=== PATIENT | male | born 1990 | race Caucasian/White ===

== ENCOUNTER 2021-02-25 19:38 | Inpatient (IN) | payer OTHER ==
[~2021-02-25] VITALS: Ht 180.3 cm; Wt 65.9 kg
[2021-02-25 21:12] LABS: HEMATOCRIT 42.2 % (42.0-52.0); HEMOGLOBIN 14.3 g/dl (13.5-17.5); MEAN CORPUSCULAR HEMOGLOBIN 31.8 pg (27.0-33.0); MEAN CORPUSCULAR HGB CONC 33.9 g/dl (32.0-36.5); MEAN CORPUSCULAR VOLUME 93.8 fl (80.0-96.0); PLATELET COUNT, AUTOMATED 295 10^3/uL (150-450); WHITE BLOOD COUNT 5.2 10^3/uL (4.0-10.0)
[2021-02-25 21:44] LABS: AMPHETAMINES LEVEL URINE NEGATIVE (NEGATIVE); BARBITURATES URINE NEGATIVE (NEGATIVE); BENZODIAZEPINES URINE NEGATIVE (NEGATIVE); CANNABINOIDS URINE NEGATIVE (NEGATIVE); COCAINE METABOLITE URINE NEGATIVE (NEGATIVE); METHADONE URINE NEGATIVE (NEGATIVE); OPIATES URINE NEGATIVE (NEGATIVE); PHENCYCLIDINE URINE NEGATIVE (NEGATIVE)
[2021-02-25 21:54] LABS: ACETAMINOPHEN LEVEL < 2.0 UG/ML (10.0-30.0); ALBUMIN 4.3 GM/DL (3.2-5.2); ALT/SGPT 21 U/L (12-78); BILIRUBIN,DIRECT 0.3 MG/DL (0.0-0.2); BILIRUBIN,TOTAL 0.7 MG/DL (0.2-1.0); BLOOD UREA NITROGEN 10 MG/DL (7-18); CALCIUM LEVEL 9.4 MG/DL (8.5-10.1); CARBON DIOXIDE LEVEL 26 MEQ/L (21-32); CHLORIDE LEVEL 110 MEQ/L (98-107); CREATININE FOR GFR 0.66 MG/DL (0.70-1.30); ETHYL ALCOHOL (ETHANOL) 0.161 % (0.000-0.010); GLOMERULAR FILTRATION RATE > 60.0 (>60); GLUCOSE, FASTING 94 MG/DL (70-100); POTASSIUM SERUM 3.8 MEQ/L (3.5-5.1); SALICYLATE LEVEL < 1.7 MG/DL (5.0-30.0); SODIUM LEVEL 144 MEQ/L (136-145); TOTAL PROTEIN 7.5 GM/DL (6.4-8.2)
--- OUTSIDE RECORDS SUMMARY | 2021-02-26 00:01 | CCD ---
Author Author [facility] Address Unknown Phone Unavailable Support Name Relationship Address Phone [facility] Next Of Kin [address] [place] [address] Unavailable Re-disclosure Warning The records that you are about to access may contain information from federally-assisted alcohol or drug abuse programs. If such information is present, then the following federally mandated warning applies: This information has been disclosed to you from records protected by federal confidentiality rules (42 CFR part 2). The federal rules prohibit you from making any further disclosure of this information unless further disclosure is expressly permitted by the written consent of the person to whom it pertains or as otherwise permitted by 42 CFR part 2. A general authorization for the release of medical or other information is NOT sufficient for this purpose. The Federal rules restrict any use of the information to criminally investigate or prosecute any alcohol or drug abuse patient.The records that you are about to access may contain highly sensitive health information, the redisclosure of which is protected by Article 27-F of the [facility] Public Health law. If you continue you may have access to information: Regarding HIV / AIDS; Provided by facilities licensed or operated by the [facility] Office of Mental Health; or Provided by the [facility] Office for People With Developmental Disabilities. If such information is present, then the following [facility] mandated warning applies: This information has been disclosed to you from confidential records which are protected by state law. State law prohibits you from making any further disclosure of this information without the specific written consent of the person to whom it pertains, or as otherwise permitted by law. Any unauthorized further disclosure in violation of state law may result in a fine or senior care sentence or both. A general authorization for the release of medical or other information is NOT sufficient authorization for further disc losure. Immunizations Vaccine Date Status Description Data Source(s) COVID-19 VACCINE Moderna 02/11/2021 12:00:00 AM EST completed [facility] Vaccine Series Complete: NOThis Data was Submitted to [facility] Via [employer]. Medications No Information Insurance Providers Payer name Policy type / Coverage type Policy ID Covered libertarian ID Covered libertarian's relationship to petersen Policy Petersen Plan Information [facility] ACTIVE D[employer]Y [id number] Problems, Conditions, and Diagnoses No Information Surgeries/Procedures No Information Results No Information Social History No Information
[2021-02-26 01:33] LABS: RSV AMPLIFICATION NEGATIVE (NEGATIVE)
[2021-02-26] MEDS ORDERED: MOM 30ML SUSPENSION UDC PO PRN (01:50)
[2021-02-26] MEDS ORDERED: ACETAMINOPHEN TAB 650MG DOSE (2X325MG) PO PRN (01:50)
[2021-02-26] MEDS ORDERED: MAALOX 30 ML SUSP *UDC PO PRN (01:50)
[2021-02-26] MEDS ORDERED: HOME MED LIST COMPLETE! XX SCH (02:05)
[2021-02-26 02:30] VITALS: BP 135/87
--- OUTSIDE RECORDS SUMMARY | 2021-02-26 02:58 | CCD ---
Author Author [facility] Address Unknown Phone Unavailable Support Name Relationship Address Phone [facility] Next Of Kin [address] [place] [address] Unavailable Re-disclosure Warning The records that you [...] is protected by Article 27-F of the [facility] Public Health law. If you continue you may have access to information: Regarding HIV / AIDS; Provided by facilities licensed or operated by the [facility] Office of Mental Health; or Provided by the [facility] Office for People With Developmental Disabilities. If such information is present, then the following [facility] mandated warning applies: This information has been [...] law may result in a fine or [place] health [facility] [place] sentence or both. A general authorization for the release of medical or other information is NOT sufficient authorization for further disc losure. Immunizations Vaccine Date Status Description Data Source(s) COVID-19 VACCINE Moderna 02/11/2021 12:00:00 AM EST completed [facility] Vaccine Series Complete: NOThis Data was Submitted to [facility] Via [employer]. Medications No Information Insurance Providers Payer name Policy type / Coverage type Policy ID Covered green party ID Covered green party's relationship to petersen Policy Petersen Plan Information [facility] ACTIVE [employer] [id number] Problems, Conditions, and Diagnoses No Information Surgeries/Procedures No Information Results No Information Social History No Information
[2021-02-26 06:25] VITALS: BP 142/70
[2021-02-26] MEDS: CitaloPRAM (CeleXA) 20 MG TAB PO SCH (11:36)
--- NOTE | 2021-02-26 13:14 | MHHPE ---
[facility] HISTORY AND PHYSICAL DATE OF ADMISSION: 02/26/2021 DATE OF EVALUATION: 02/26/2021 HISTORY OF PRESENT ILLNESS: The patient is first seen via Telepsychiatry and then the patient was seen in person after the initial information was obtained via Telepsychiatry. This is a 30-year-old man. This is his first hospitalization. He was admitted because he presented with complaints of increasing depression and anxiety and suicidal thoughts over the past month. His main stressor is work. He is in the [employer] and he states that he gets really stressed out at work. He feels very depressed, hopeless and helpless. He has middle insomnia, and he also states that he has a lot of anxiety. I did not elicit any other hypomanic or manic-like symptoms or PTSD, OCD or panic disorder in this patient. PAST PSYCHIATRIC HISTORY: The patient has never been in a psychiatric unit. He did some brief outpatient treatment at [facility] a few months ago and he states he went for anxiety. He was never treated with medications. He has no history of suicidal attempts. FAMILY HISTORY: There are no suicides in the family. His mother has had treatment for depression. He states a sister was once hospitalized in a psychiatric unit but he is not sure for what. MEDICAL HISTORY: The patient denies any medical problems. SUBSTANCE USE HISTORY: The patient has no trouble with alcohol or drugs. He drinks alcohol a few times a week he states but he states it is social and he does not think it is a problem and he denies using any drugs. ABUSE HISTORY: The patient denies any problems with any history of being abused physically or sexually or emotionally in the past. REVIEW OF SYSTEMS: VITAL SIGNS: Blood pressure 142/70, pulse is 78, respirations 97. NEUROMUSCULAR SYSTEM: I did not elicit any involuntary movements of his extremities and his gait is normal. GENERAL APPEARANCE: He did not appear to be in any apparent distress. All other systems were reviewed and found to be negative. MENTAL STATUS EXAMINATION: The patient is alert and oriented times three. Eye contact is fair. Psychomotor activity is decreased. There is no formal thought disorder noted. Mood is depressed and anxious. Affect is full range and appropriate. He is not psychotic, suicidal or homicidal. He admits to having had suicidal thoughts prior to admission but denies any thoughts today. Concentration is fair. Memory is intact. Insight and judgment are poor. DIAGNOSIS: 1. Major depressive disorder, recurrent, severe - without psychotic symptoms. 2. Other specified anxiety disorder. TREATMENT PLAN: At this point we will continue to monitor the patient for depression and continue resolution of suicidal thoughts. I will start him on Celexa 20 mg q. daily for his depression and anxiety and Trazodone 50 mg q. h.s. p.r.n. for insomnia. And the plan will be to involve him in individual, group and milieu therapy and discharge when appropriate with appropriate follow up. TARUN
--- NOTE | 2021-02-26 17:47 | HPEPDOC ---
[facility] Medical History & Physical Date of Admission Feb 26, 2021 Date of Service: Feb 26, 2021 History and Physical CHIEF COMPLAINT: Medical health screening HISTORY OF PRESENT ILLNESS: Mr. Coles is a 30-year-old male who was in the inpatient mental health unit for suicidal ideation. Hospitalist was consulted for medical screening. Patient was seen in his room this afternoon. He feels well. Denies any chest pain or dyspnea, abdominal pain, diarrhea, or dysuria. He still feels sad and depressed. He had no other questions or concerns. PAST MEDICAL HISTORY: Denies any past medical history and does not take any medications regularly PAST SURGICAL HISTORY: 1. History of surgery for pyloric stenosis SOCIAL HISTORY: Tobacco use: Denies ETOH: Regularly drinks alcohol Illicit drug use: Denies FAMILY HISTORY: Father: History of high blood pressure Mother: History of hypothyroidism ALLERGIES: Please see below. REVIEW OF SYSTEMS: CONSTITUTIONAL: Denies any fever or chills. ENT: Denies sore throat. RESPIRATORY: Denies shortness of breath. Denies cough. CARDIOVASCULAR: Denies chest pain. Denies palpitations. GASTROINTESTINAL: Denies abdominal pain. Denies diarrhea. GENITOURINARY: Denies dysuria. CUTANEOUS: Denies rashes. MUSCULOSKELETAL: Denies muscle weakness. NEUROLOGICAL: Denies neuropathy. Denies paresthesias. PSYCHOLOGICAL: Reports anxiety. Reports depression. HOME MEDICATIONS: Please see below. PHYSICAL EXAMINATION: VITAL SIGNS: Temperature 99.6, pulse 78, respiratory rate 16, blood pressure 142/70, pulse oximetry 97% on room air. GENERAL: Comfortable, in no apparent distress. HEENT: Head normocephalic/atraumatic, EOMI, sclera clear. NECK: Supple, no JVD. RESPIRATORY: Lungs clear to auscultation bilaterally, no rales, wheeze or rhonchi. CARDIOVASCULAR: Regular rate and rhythm. ABDOMEN: Soft, nontender, no guarding or rebound tenderness. Normal bowel sounds. MUSCLE SKELETAL: Muscle strength 5/5 in all extremities. NEUROLOGICAL: CN 312 grossly intact, no focal deficits noted. PSYCHOLOGICAL: Normal mood and affect LABORATORY DATA: See below. IMAGING: None MICROBIOLOGY: Please see below. ASSESSMENT and PLAN: 1. Suicidal ideation Being managed in the inpatient mental health unit 2. Wellness Patient should follow with a PCP regularly Thank you for consulting us. We will sign off at this time. If there are any further questions or concerns, please do not hesitate to reconsult us. Vital Signs Vital Signs Date Time Temp Pulse Resp B/P (MAP) Pulse Ox O2 Delivery O2 Flow Rate FiO2 02/26/21 06:25 99.6 78 16 142/70 (94) 97 Room Air Laboratory Data Labs 24H Laboratory Tests 2 02/25/21 20:44: Nucleated Red Blood Cells % (auto) 0.0, Anion Gap 8, Glomerular Filtration Rate > 60.0, Calcium Level 9.4, Total Bilirubin 0.7, Direct Bilirubin 0.3H, Aspartate Amino Transf (AST/SGOT) 14, Alanine Aminotransferase (ALT/SGPT) 21, Alkaline Phosphatase 84, Total Protein 7.5, Albumin 4.3, Albumin/Globulin Ratio 1.3, Thyroid Stimulating Hormone (TSH) 1.160, Salicylates Level < 1.7L, Urine Opiates Screen NEGATIVE, Urine Methadone Screen NEGATIVE, Acetaminophen Level < 2.0L, Urine Barbiturates Screen NEGATIVE, Urine Phencyclidine Screen NEGATIVE, Urine Amphetamines Screen NEGATIVE, Urine Benzodiazepines Screen NEGATIVE, Urine Cocaine Metabolite Screen NEGATIVE, Urine Cannabinoids Screen NEGATIVE, Ethyl Alcohol Level 0.161H 02/26/21 00:33: Coronavirus (COVID-19)(PCR) NEGATIVE, Influenza Type A (RT-PCR) NEGATIVE, Influenza Type B (RT-PCR) NEGATIVE, Respiratory Syncytial Virus (PCR) NEGATIVE CBC/BMP Laboratory Tests 02/25/21 20:44 Home Medications No Active Prescriptions or Reported Meds Allergies Coded Allergies: No Known Allergies (Unverified , 02/25/21) A-FIB/CHADSVASC A-FIB History Current/History of A-Fib/PAF?: No TANK COHN DO Feb 26, 2021 17:47
[2021-02-26 18:00] VITALS: BP 127/75
[2021-02-26] MEDS: traZODone 50 MG TAB PO PRN (20:55)
[2021-02-27 07:42] VITALS: BP 117/65
[2021-02-27] MEDS: CitaloPRAM (CeleXA) 20 MG TAB PO SCH (08:22)
[2021-02-27 19:20] VITALS: BP 142/74
[2021-02-27] MEDS: traZODone 50 MG TAB PO PRN (20:44)
[2021-02-28 06:39] VITALS: BP_SYST 130; BP_DIAS 70; BP_DIAS 72
[2021-02-28] MEDS: CitaloPRAM (CeleXA) 20 MG TAB PO SCH (08:30)
[2021-02-28] MEDS ORDERED: hydrOXYzine 50 MG TAB PO PRN (09:00)
--- NOTE | 2021-02-28 10:35 | MHIPNPDOC ---
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 BAL was 0.161 on admission. Endorses that medication has been helping with his symptoms as well as being on the unit, away from the , on evaluation no symptoms of overt OCD including obsessions, compulsions, delayed work progress, does endorse brushing his teeth 3 times a day but denies any fears of contamination, reports sleeping 8 hours a night and eating normally, denies suicidal ideations, intent or plan today. Denies karla icidal ideations, intent or plan. No symptoms of sheila or psychosis reported or observed. No symptoms of alcohol withdrawal reported or observed, aims scoring is 0 today on interview. VITAL SIGNS: See below. NEW TEST RESULTS: None, see below CURRENT MEDICATIONS: See below. MENTAL STATUS EXAMINATION: Patient is a 30-year old male, who is in no acute distress, neat hair, fair eye contact, appears stated age, thin, average height, appears stated age with glasses Speech: Is spontaneous, mildly slowed, normal amount, regular rate Language skills are intact Thought processes including: Linear, logical, goal-directed. Thought content: Denies SI, intent or plan. Denies HI, intent or plan. Abstract reasoning, and computation: Normal description of associations: Normal Description of abnormal or psychotic thoughts: Denies, not observed. Judgment: Fair. Insight: Good Orientation: X4. Recent and remote memory: Intact. Attention span and concentration: Normal Language: Yakut. Fund of knowledge: Average based on interview. Mood: " Some anxiety, but better here". Affect: Mild anxiety, mildly constricted, appropriate, mood congruent DIAGNOSES: Generalized anxiety disorder Major depressive disorder, moderate, single episode ASSESSMENT: On interview patient reports a history of primarily anxiety starting in young adulthood prior to join the which worsened in context of placement also reports low mood, low energy, poor sleep, depression, SI in context of being in work environment lasting more than 2 weeks, states that despite these thoughts having some time away from the and starting medication has been helpful and no longer endorses suicidal ideation, states never had intent, rather vague thoughts and vague plans which she never plan to follow through on. States he feels he could return today, however is agreeable to continued stay for further evaluation, safe discharge plan. Possible discharge tomorrow or Sunday if symptoms continue to improve, to evaluate for medication tolerance and safe discharge planning to be arranged with coordination of . MANAGEMENT PLAN: Continue medications, started BuSpar 10 mg p.o. twice daily for anxiety, Atarax as needed for anxiety spells TIME SPENT: 25 minutes. Vital Signs Vital Signs Date Time Temp Pulse Resp B/P (MAP) Pulse Ox O2 Delivery O2 Flow Rate FiO2 02/28/21 06:39 98.6 64 14 130/70 (90) 98 Room Air Current Medications Current Medications Medications (Trade) Dose Ordered Sig/Eulalia Route PRN Reason Start Time Stop Time Status Last Admin Dose Admin Acetaminophen (Tylenol Tab) 650 mg Q6HP PRN PO HEADACHE or MILD DISCOMFORT 02/26/21 01:50 Al Hydrox/Mg Hydrox/Simethicone (Mylanta) 30 ml Q4HP PRN PO HEARTBURN/INDIGESTION 02/26/21 01:50 Citalopram Hydrobromide (CeleXA) 20 mg DAILY PO 02/26/21 09:00 02/28/21 08:30 Home Med (Home Med List Complete!) ASDIRECTED XX 02/26/21 02:05 02/26/21 02:16 DC Magnesium Hydroxide (Milk Of Magnesia) 30 ml DAILYPRN PRN PO CONSTIPATION 02/26/21 01:50 Trazodone HCl (Desyrel) 50 mg QHSP PRN PO INSOMNIA 02/26/21 01:50 02/27/21 20:44 Allergies Coded Allergies: No Known Allergies (Unverified , 02/25/21) WADE ROMERO MD Feb 28, 2021 10:35
[2021-02-28] MEDS: busPIRone 10 MG TAB PO SCH ×2 (10:45→20:18)
--- NOTE | 2021-02-28 15:23 | MHIPN ---
[facility] PROGRESS NOTE DATE: 02/27/2021 HISTORY OF PRESENT ILLNESS: The patient is seen via TelePsychiatry due to the current Coronavirus crisis. The patient states that he is "doing okay." He says that he slept good last night with the trazodone. He says he is not suicidal today. When I asked him about the depression he said "not bad," but he still is having some depression. MENTAL STATUS EXAM: This patient is alert and oriented times 3. Eye contact is fair. Psychomotor activity is decreased. There is no formal thought disorder noted. Mood is depressed. Affect is appropriate. He is not psychotic, suicidal or homicidal. Concentration and memory is good. Insight and judgment good. DIAGNOSES: 1. Major depression disorder recurrent, severe, without psychotic symptoms. 2. Other specified anxiety disorder. TREATMENT PLAN: We will continue to monitor the patient for continued elevation and stabilization of his mood and continued resolution of suicidal ideations and we will continue to titrate medications as indicated. So far he is tolerating his Celexa and trazodone well without any side effects.
[2021-02-28 16:21] VITALS: BP 133/76
[2021-02-28] MEDS: traZODone 50 MG TAB PO PRN (20:18)
[2021-03-01 06:59] VITALS: BP 133/74
[2021-03-01] MEDS ORDERED: BUSP10TA PO (08:29)
[2021-03-01] MEDS ORDERED: TRAZ-252 PO (08:29)
[2021-03-01] MEDS ORDERED: HYDR50TA70 PO (08:29)
[2021-03-01] MEDS ORDERED: CELE20TA PO (08:29)
[2021-03-01] MEDS: CitaloPRAM (CeleXA) 20 MG TAB PO SCH (08:42)
[2021-03-01] MEDS: busPIRone 10 MG TAB PO SCH (08:42)
--- NOTE | 2021-03-01 11:16 | MHDSPDOC ---
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 BAL was 0.161 on admission. Endorses that medication has been helping with his symptoms as well as being on the unit, away from the , on evaluation no symptoms of overt OCD including obsessions, compulsions, delayed work progress, does endorse brushing his teeth 3 times a day but denies any fears of contamination, reports sleeping 8 hours a night and eating normally, denies suicidal ideations, intent or plan today. Denies homicidal ideations, intent or plan. No symptoms of sheila or psychosis reported or observed. No symptoms of alcohol withdrawal reported or observed, aims scoring is 0 today on interview. Vital signs: See below Consultants involved: See medical H&P by hospitalist Treatment and progress on the unit: Patient was admitted to the [facility] 9.39 legal status and was afforded the following treatment modalities: 1. Individual therapy 2. Group therapy 3. Medication management 4. Milieu therapy 5. Safe environment Hospital course: Patient was admitted to the [facility] on a 9.39 legal status. Patient was admitted after he called 911 while intoxicated, BAL was 0.161 on admission, was medically cleared prior to coming up to the [facility]. Was reporting acute stressor being in the and not having a set schedule and allow her to complete his tasks on duty, despite this states he has had chronic anxiety impacts multiple areas of functioning and that he wanted help for this, was started on Celexa 20 mg p.o. daily and BuSpar 10 mg twice daily, as needed hydroxyzine and trazodone as needed for sleep. Patient found medications beneficial and tolerated them well without side effects. During stay never reported suicidal intent or plan rather vague suicidal thoughts in context of high anxiety, reported that medications helped calm his anxiety and was no longer having these thoughts and felt safe to return to [facility]. Denies mood anxiety and intrusive thoughts which improved with treatment. Patient attended groups daily during stay. Patient symptoms improved with treatment. On day of discharge patient denied depression, anxiety, insomnia, suicidal or homicidal ideations intent or plan, hallucinations, delusions. Patient was discharged to [facility] with follow-up. Patient felt safe for discharge. Was offered continued stay on voluntary admission but refused. Was educated on alcohol use and other substance use, refused treatment for alcohol cravings. Discharge assessment: On today's interview patient is alert and oriented, dressed appropriately. Hygiene and grooming is well-kept. Smiles on approach and is pleasant and engaged on interview. Denies depression and anxiety. Denies suicidal homicidal ideation, intent or planning. Denies and is not observed with sheila or psychotic symptoms of delusions, hallucinations, bizarre thinking, obsessions, paranoia, ruminations, illogical thoughts, flight of ideas or having poor insight or judgment. Patient has normal mentation, declines further hospitalization of voluntary status and meets criteria for discharge today, patient encouraged to return the hospital if symptoms worsen or change and encouraged to call unit if they feel they need provider's questions to be answered or help with medications or care. Patient was future oriented and look forward to seeing his after safety check on [facility]. Mental status: Patient is a 30-year old male, who is in no acute distress, neat hair, good eye contact, appears stated age, thin, average height, appears stated age with glasses Speech: Is spontaneous, mildly slowed, normal amount, regular rate Language skills are intact Thought processes including: Linear, logical, goal-directed. Thought content: Denies SI, intent or plan. Denies HI, intent or plan. Abstract reasoning, and computation: Normal description of associations: Normal Description of abnormal or psychotic thoughts: Denies, not observed. Judgment: Good. Insight: Good Orientation: X4. Recent and remote memory: Intact. Attention span and concentration: Normal Language: Bahamian. Fund of knowledge: Average based on interview. Mood: " Better, calm, at least a 5 out of 10". Affect: Euthymic, mild anxiety at times, appropriate, mood congruent, does laugh and smile at times Medications on discharge: -see medication reconciliation: CSSRS on discharge: Wish to be : No nonspecific active suicidal thoughts: No lifetime attempts: 0 interrupted attempts: 0 aborted attempts: 0 preparatory acts or behavior: None Taking into consideration safety state, status, safety plan, protective factors modifiable, non-modifiable risk factors patient is at low risk on discharge for suicide according to [facility] suicide evaluation. PLAN/FOLLOWUP ARRANGEMENTS: Follow Up Care Education Label * Medical * Medical Follow Up [facility] * Established With This Provider Yes * Therapist [facility] [place] * Date Mar 11, 2021 * Time 12:40 * Address of Clinic or Practice [facility]/ [address] * Follow Up Care Education Label * Mental Health Appt 1 * Additional information [facility]/1BCT HICKEY,CHRI [id number] FTR/60 PENDING Arrive 15 min early 1ST BCT [facility]/1BCT COL SABI [id number]@1000 SPEC/90 PENDING Arrive 15 min early TECH [facility]/1BCT Irene TYLER [id number]@0900 SPEC/90 PENDING Arrive 15 min early 1ST BCT [facility]/1BCT KATHLEEN STARKSIA [id number]@1000 FTR/60 PENDING Arrive 15 min early 1ST BCT [facility]/1BCT KATHLEEN STARKSIA [id number]@0900 FTR/60 PENDING Arrive 15 min early 1ST T [facility]/1BCT RAUDEL,HAIR [id number]@1100 FTR/60 PENDING Arrive 15 min early 1ST T [facility]/1BCT KATHLEEN STARKSIA [id number]@0900 FTR/60 PENDING The amount of time spent in the coordination of care for this patient was approximately 25 minutes. ETOH/Disorder Med Rx ETOH/DRUG DISORDER RX: Offrd @ d/c & pt refused Vital Signs/I&Os Vital Signs Date Time Temp Pulse Resp B/P (MAP) Pulse Ox O2 Delivery O2 Flow Rate FiO2 03/01/21 06:59 98.4 66 20 133/74 (93) 98 Room Air Laboratory Data Labs 24H Laboratory Tests 2 02/28/21 17:00: Coronavirus (COVID-19)(PCR) NEGATIVE Medications Scheduled Buspirone HCl (Buspirone HCl) 10 Mg Tablet, 10 MG PO BID for anxiety, #14 Citalopram Hydrobromide (Celexa) 20 Mg Tablet, 20 MG PO DAILY for anxiety, #7 Scheduled PRN Hydroxyzine HCl (Hydroxyzine HCl) 50 Mg Tablet, 50 MG PO Q6HP PRN for ANXIETY, #21 Trazodone HCl (Trazodone HCl) 50 Mg Tablet, 50 MG PO QHSP PRN for INSOMNIA, #7 Allergies Coded Allergies: No Known Allergies (Unverified , 02/25/21) WADE ROMERO MD Mar 01, 2021 11:16
== END 2021-03-01 11:32 | disposition home or self-care (01) | DRG 880 ==
LOC: M ED 19:38 → M PSY 02-26 01:48
PROVIDERS: ADMIT Student in an Organized Health Care Education/Training Program; ATTEND Student in an Organized Health Care Education/Training Program
DX: F41.1 Generalized anxiety disorder (principal); F32.1 Major depressive disorder, single episode, moderate; R45.851 Suicidal ideations; F10.10 Alcohol abuse, uncomplicated; Z20.822 Contact with and (suspected) exposure to COVID-19; Z56.3 Stressful work schedule

== ENCOUNTER 2022-02-23 12:18 | Emergency (ER) | payer OTHER ==
[~2022-02-23] VITALS: Ht 175.3 cm; Wt 67.7 kg
[~2022-02-23 12:18] MED LIST: BUSP10TA PO; CELE20TA PO; HYDR50TA70 PO; TRAZ-252 PO
[2022-02-23 12:20] VITALS: BP 147/86
[2022-02-23] MEDS ORDERED: PRED20TA PO (14:03)
[2022-02-23] MEDS ORDERED: MECL50TA PO (14:03)
[2022-02-23] MEDS ORDERED: ONDA4TAB6 PO (14:03)
== END 2022-02-23 14:13 | disposition home or self-care (01) ==
LOC: M ED 12:18
DX: H81.01 Meniere's disease, right ear (principal); Z79.899 Other long term (current) drug therapy